=== PATIENT | male | born 1990 | race Caucasian/White ===

== ENCOUNTER 2024-01-14 10:46 | Outpatient (RCR) | payer OTHER, SELFPAY ==
[2024-01-14 10:49] VITALS: BMI 36.6
[2024-01-14 15:11] VITALS: BMI 36.6
== END 2024-04-04 11:07 | disposition home or self-care (01) ==
LOC: ANHDMC 10:46
PROVIDERS: PCP Family Medicine; Visit Provider Family Medicine
DX: Z00.00 Encounter for general adult medical examination without abnormal findings (principal); Z76.89 Persons encountering health services in other specified circumstances; E66.9 Obesity, unspecified; Z71.3 Dietary counseling and surveillance
CPT/HCPCS: 97802

== ENCOUNTER 2025-01-06 10:39 | Outpatient (CLI) | payer OTHER, SELFPAY ==
--- NOTE | ~2025-01-06 | MR_ITS ---
MRI of the right shoulder Technique: Axial proton-density fat-sat images, coronal proton density fat-sat and T2 fat-sat images, and sagittal T1-weighted and T2 fat-sat images were acquired. Clinical History: Rotator cuff tendinitis Findings: No significant degenerative changes AC joint. Coracoclavicular, coracoacromial, and coracoh umeral ligaments are intact. Supraspinatus and infraspinatus tendons are intact, without partial or full-thickness tear. Subscapul av tendon is intact with mild to moderate tendinosis. Tendon of the long head of the biceps is inta ct. Questionable focal degenerative tear at the posterior aspect of the labrum at the equator. Inferior glenohumeral ligament is intact. No degenerative change or effusion of the glenohumeral join t. No fluid distention of the subacromial/subdeltoid bursa. No muscle atrophy or edema. Impression: Questionable focal tear at the posterior aspect of the labrum at the equator. Rotator cuff tendinosis, as above. Reviewed, dictated and finalized at location M. Impression: Questionable focal tear at the posterior aspect of the labrum at the equator. Rotator cuff tendinosis, as above.
== END 2025-01-06 10:40 | disposition home or self-care (01) ==
PROVIDERS: PCP Family Medicine; Visit Provider Physician Assistant Surgical
DX: M67.813 Other specified disorders of tendon, right shoulder (principal)
CPT/HCPCS: 73221